=== PATIENT | male | born 1960 | race Caucasian/White ===

== ENCOUNTER 2017-02-01 10:56 | Emergency (ER) | payer OTHER ==
[~2017-02-01] VITALS: Ht 170.2 cm; Wt 81.3 kg
[2017-02-01] MEDS ORDERED: OMEP10CASR PO (11:08)
[2017-02-01] MEDS ORDERED: KLOR-CON (11:08)
[2017-02-01] MEDS ORDERED: SIMV80TA (11:08)
--- NOTE | 2017-02-01 13:05 | REP ---
Clinical: Trauma. Technique: AP, lateral, bilateral oblique views of the right ankle. Findings: Diffuse soft tissue swelling is appreciated. No acute fracture dislocation. Joint spaces and ankle mortise are intact. Impression: Swelling. No acute fracture or dislocation. Signed by Karl Napier MD 02/01/2017 12:57 P
[2017-02-01] MEDS ORDERED: NAPR500T3 PO (13:43)
[2017-02-01] MEDS ORDERED: ACETAMINOPHEN 325 MG TAB PO ONE (13:45)
[2017-02-01] MEDS ORDERED: KETOROLAC 60 MG/2 ML VIAL (J1885) IM ONE (13:45)
[2017-02-01 13:50] VITALS: BP 186/95
== END 2017-02-01 13:52 | disposition home or self-care (01) ==
LOC: M ED 10:56
DX: S93.401A Sprain of unspecified ligament of right ankle, initial encounter (principal); X50.1XXA Overexertion from prolonged static or awkward postures, initial encounter; Y92.89 Other specified places as the place of occurrence of the external cause; Y93.01 Activity, walking, marching and hiking; Y99.9 Unspecified external cause status

== ENCOUNTER 2017-02-11 19:58 | Emergency (ER) | payer OTHER ==
[~2017-02-11] VITALS: Ht 170.2 cm; Wt 79.5 kg
[2017-02-11 19:58] VITALS: BP 154/87
[~2017-02-11 19:58] MED LIST: KLOR-CON; NAPR500T3 PO; OMEP10CASR PO; SIMV80TA
== END 2017-02-11 21:59 | disposition left against medical advice (07) ==
LOC: M ED 19:58
DX: S99.911D Unspecified injury of right ankle, subsequent encounter (principal); Z53.21 Procedure and treatment not carried out due to patient leaving prior to being seen by health care provider

== ENCOUNTER → 2017-02-12 | Outpatient (CLI) | payer OTHER ==
--- NOTE | 2017-02-12 15:16 | REP ---
Clinical: Continued pain with recent trauma. Technique: AP, lateral, bilateral oblique views of the right ankle. Comparison: 02/01/2017. Findings: Significant lateral swelling is unchanged. Mild medial swelling is slightly improved. Degenerative changes are appreciated. No acute fracture or dislocation identified Impression: Continued lateral swelling. Decreased medial swelling. No acute fracture. Signed by Karl Napier MD 02/12/2017 03:07 P
== END ==
LOC: M WUC 14:56
PROVIDERS: ATTEND Physician Assistant
DX: S93.421A Sprain of deltoid ligament of right ankle, initial encounter (principal); X58.XXXA Exposure to other specified factors, initial encounter; Y92.89 Other specified places as the place of occurrence of the external cause; Y93.89 Activity, other specified; Y99.8 Other external cause status

== ENCOUNTER → 2018-06-14 | Outpatient (CLI) | payer OTHER ==
[~2018-06-14] MED LIST changes: +NAPR-885 PO; -NAPR500T3 PO; -SIMV80TA; +SIMV80TA13
[2018-06-14 13:57] LABS: BASO % 0.6 % (0.0-1.0); EOS # 0.1 10^3/uL (0.0-0.50); EOS % 1.4 % (0.0-3.0); HEMATOCRIT 43.8 % (42.0-52.0); HEMOGLOBIN 14.8 g/dl (13.5-17.5); LYMPH # 1.6 10^3/uL (1.5-4.5); LYMPH % 23.2 % (24.0-44.0); MEAN CORPUSCULAR HEMOGLOBIN 29.4 pg (27.0-33.0); MEAN CORPUSCULAR HGB CONC 33.8 g/dl (32.0-36.5); MEAN CORPUSCULAR VOLUME 86.9 fl (80.0-96.0); MONO # 0.6 10^3/uL (0.0-0.8); MONO % 8.8 % (0.0-5.0); NEUTROPHILS # 4.6 10^3/uL (1.8-7.7); NEUTROPHILS % 65.7 % (36.0-66.0); PLATELET COUNT, AUTOMATED 266 10^3/uL (150-450); RED BLOOD COUNT 5.04 10^6/uL (4.30-6.10)
[2018-06-14 14:38] LABS: ALBUMIN 3.9 GM/DL (3.2-5.2); ALT/SGPT 19 U/L (12-78); BILIRUBIN,TOTAL 0.4 MG/DL (0.2-1.0); BLOOD UREA NITROGEN 15 MG/DL (7-18); CALCIUM LEVEL 8.9 MG/DL (8.5-10.1); CARBON DIOXIDE LEVEL 29 MEQ/L (21-32); CHLORIDE LEVEL 105 MEQ/L (98-107); FREE T4 0.98 NG/DL (0.76-1.46); GLOMERULAR FILTRATION RATE > 60.0 (>56); GLUCOSE, FASTING 101 MG/DL (70-100); POTASSIUM SERUM 4.6 MEQ/L (3.5-5.1); SODIUM LEVEL 143 MEQ/L (136-145); TOTAL PROTEIN 6.9 GM/DL (6.4-8.2)
== END ==
LOC: M SMT 09:51
PROVIDERS: ATTEND Physician Assistant
DX: H81.13 Benign paroxysmal vertigo, bilateral (principal)

== ENCOUNTER → 2019-01-25 | Outpatient (REF) | payer OTHER | LOC: M LAB REF 09:59 | PROVIDERS: ATTEND Physician Assistant | DX: L82.0 Inflamed seborrheic keratosis (principal) ==

== ENCOUNTER → 2024-07-12 | Outpatient (CLI) | payer OTHER | LOC: M RAD 16:16 | PROVIDERS: ATTEND Nurse Practitioner Family | DX: Z87.891 Personal history of nicotine dependence (principal) ==